=== PATIENT | male | born 1980 | race Caucasian/White ===

== ENCOUNTER 2023-04-25 15:45 | Emergency (ER) | payer OTHER, SELFPAY ==
[2023-04-25 15:49] VITALS: BP 144/85; PULSE 105; RESP 16; TEMP 36.6; O2SAT 96; BMI 27.2
--- NOTE | 2023-04-25 16:56 | ED_ITS ---
HPI - Psych General Chief Complaint: Psychiatric Symptoms Stated Complaint: crisis Time Seen by Provider: 04/25/23 16:03 Source: patient Mode of arrival: ambulatory Limitations: no limitations History of Present Illness HPI Narrative: Patient comes emergency room complaining of feeling very angry. Patient states that he is not suicidal or homicidal. Patient states that he was recently started on ADHD medications and Wellbutrin. Patient thinks that he has ADHD is well controlled but since his Wellbutrin dose was increased, he has noticed that he is always angry and having anger outburst. Related Data Allergies Allergy/AdvReac Type Severity Reaction Status Date / Time No Known Allergies Allergy Verified 04/25/23 15:54 Review of Systems Review of Systems: Constitutional : No Weight loss, No Fever, No Chills, No Night Sweats, No Fatigue, No Malaise ENT/Mouth : No Hearing loss, No Ear Pain, No Nasal Congestion, No Sinus Pain, No Hoarseness, No sore throat, No Rhinorrhea, No Swallowing Difficulty Eyes: No Eye Pain, No Swelling, No Redness, No Foreign Body, No Discharge, No Vision Changes Cardiovascular : No Chest Pain, No SOB, No Dyspnea on Exertion, No Orthopnea, No Edema, No Palpitations Respiratory : No Cough, No Sputum, No Wheezing, No Smoke Exposure, No Dyspnea Gastrointestinal : No Nausea, No Vomiting, No Diarrhea, No Constipation, No abdominal Pain, No Hematochezia, No Melena Genitourinary : no irregular bleeding, No Dysuria, No Urinary Frequency, No Hematuria, No Urinary Incontinence, No Urgency, No Flank Pain, No Urinary Flow Changes, No Hesitancy Musculoskeletal : No joint pain, No Myalgias, No Joint Swelling Skin : No Skin Lesions, No rash Neuro : No Weakness, No Numbness, No Paresthesias, No Loss of Consciousness, No Dizziness, No Headache Psych : No Anxiety/Panic, No Depression, No SI/HI/AH/VH, complaining of anger outburst Heme/Lymph: No Bruising, No Bleeding,No Lymphadenopathy Endocrine : No Polyuria, No Polydipsia, No Temperature Intolerance [facility] Past Medical History Medical History (Updated 04/25/23 @ 17:01 by Nathalia Cavazos MD) ADHD Physical Exam Vital Signs: Vital Signs: Last Vital Signs Temp 98 F 04/25/23 15:49 Pulse 105 H 04/25/23 15:49 Resp 16 04/25/23 15:49 BP 144/85 H 04/25/23 15:49 Pulse Ox 96 04/25/23 15:49 O2 Del Method Room Air 04/25/23 15:49 BMI result Body Mass Index 27.2 Const: Other: Appearance: Alert. Oriented X3. No acute distress. Eyes: Pupils equal, round and reactive to light. ENT: Pharynx normal. Neck: Normal inspection. Neck supple. No lymph nodes noted. No crepitus CVS: Normal heart rate and rhythm. Pulses normal. Normal S1 and S2 Respiratory: No respiratory distress. Breath sounds normal. No Wheezing. No rales Abdomen: Soft and nontender. No rigidity. No distention. Skin: Skin warm and dry. Normal skin color. Normal skin turgor. Extremities: No lower extremity edema. No Lacerations. No Rash Neuro: Oriented X 3. No motor deficit. No sensory deficit. Moving all extremities. No slurred speech. CN 2 through 12 grossly intact Psych: calm, cooperative, normal affect Course Course Course Narrative: -all of patient's labs are pending -care team consult pending -patient is not suicidal or homicidal, Section 12 not indicated -Physician observation status at 17:00 Discharge Plan Discharge Clinical Impression: Feeling angry Patient Disposition: Still a Patient Interventions: [place]-Suicide Risk Severity Scale Last Done: 04/25/23 16:00
[2023-04-25 17:09] LABS: Appearance Urine Clear; Color Urine Yellow; Glucose Urine UA Negative (Negative); Leukocyte Esterase Urine Negative (Negative); Nitrite Urine Negative (Negative); PH 5.5 (5.0-9.0); Urine Blood Negative (Negative); Urine Ketones Trace mg/dL (Negative); Urine Protein Negative (Neg-Trace)
--- OUTSIDE RECORDS SUMMARY | 2023-04-25 17:14 | XMS_ITS | Continuity of Care Document ---
Author Name Unknown Organization [facility] Address [address] [place] [address]- Care Team Providers Care Cook Short Order Name Role Phone Not on Staff, PCP Primary Care Physician Unavail able [place] [facility] [place]10[place]22 - 11/10/22 [facility] [address] [place] [address]- Encounter Diagnosis Dog bite(Final) - 11/10/22 Discharge Disposition: A-D/C Home Attending Physician: Janett Echevarria MD Admitting Physician: Janett Echevarria MD Referring Physician: Not on Staff, Referring MD Allergies, Adverse Reactions, Alerts No Known Allergies Immunizations Given and Recorded Vaccine Date Status Refusal Reason Rabies Immune Globulin, Human 11/10/22 Given rabies vaccine, human diploid cell 11/10/22 Given tetanus/diphtheria/pertussis, acel(Tdap) 11/10/22 Given tetanus-diphtheria toxoids (Td) 03/06/95 Recorded Measles/Mumps/Rubella Virus Vaccine 03/01/92 Recor ded Measles/Mumps/Rubella Virus Vaccine 11/20/80 Recor ded Polio Vaccine, Live (oldterm) 11/24/84 Recorded Polio Vaccine, Live (oldterm) 05/23/81 Recorded Polio Vaccine, Live (oldterm) 02/26/80 Recorded Polio Vaccine, Live (oldterm) 79 Recorded Diphth/Pertussis, Whl Cell/Tet(oldterm) 11/24/84 R ecorded Diphth/Pertussis, Whl Cell/Tet(oldterm) 05/23/81 R ecorded Diphth/Pertussis, Whl Cell/Tet(oldterm) 05/04/80 R ecorded Diphth/Pertussis, Whl Cell/Tet(oldterm) 02/26/80 R ecorded Diphth/Pertussis, Whl Cell/Tet(oldterm) 79 R ecorded Medications Augmentin 875 mg-125 mg oral tablet 1 tablet, By Mouth, Every 12 hours, for 7 days, with food or milk, # 14 tablet, 0 Refills, Acute 11/17/22 11:34:00 EDT, 11/10/22 11:34:00 EDT, Tablet, [id number], Partial fill upon patient request if the prescription is for a schedule II opioi... 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 No prior studies are available. HISTORY: Pain. FINDINGS: Today's study is limited by a ring on the fourth finger which could not be removed. No fracture or dislocation is identified. Joint spaces are well preserved. No soft tissue gas is appreciated. IMPRESSION: Slightly Limited study showing no evidence of fracture or dislocation. Examination 55417. Thank you for allowing me to participate in the care of this patient. WSN: [id number] Ordering Physician: Janett Echevarria Dictated By: Davey Pollack MD Dictated Date/Time: 11/10/22 11:17 a Reviewed By: Davey Pollack MD Signed By: Davey Pollack MD Signed Date/Time: 11/10/22 11:17 am Transcribed By: ALEXANDRO Transcribed Date/Time: 11/10/22 11:17 am Vital Signs Most recent to oldest [Reference Range]: 1 2 Height 178 cm (11/10/22 9:40 AM) 178 cm (11/10/22 9:38 AM) Weight 75 kg (11/10/22 9:40 AM) 75 kg (11/10/22 9:38 AM) Oxygen Saturation [94-100 %] 95 % (11/10/22 9:38 AM) Pulse Rate [55-90 bpm] 70 bpm (11/10/22 9:38 AM) Body Mass Index [18.5-24.99 kg/m2] 23.67 kg/m2 (11/10/22 9:38 AM) Blood Pressure [90-138/55-84 mm Hg] 146/ 90mm Hg *H* (11/10/22 9:38 AM) Respiratory Rate [16-30 br/min] 16 br/mi n (11/10/22 9:38 AM) Temperature [96.8-100.4 DegF] 98.7 DegF (11/10/22 9:38 AM) Mode of Delivery (Oxygen) Room air (11/10/22 9:38 AM) Blood pressure sites Arm, left (11/10/22 9:38 AM) Temperature Route Oral (11/10/22 9:38 AM) Dry Weight 75 kg (11/10/22 9:40 AM) Weight Obtained Via Patient/family state d (11/10/22 9:40 AM) Dry Weight Obtained Via Patient/family s tated (11/10/22 9:40 AM) Social History Social History Type Response Smoking Status Current every day sm oker; Other: 1 PPD; entered on: 11/30/13 Sex XR Hand - right GE 3 Views * [facility] , CIS S: TRANSCRIRUT Pollack MD, Davey Pate: VERIFY Event Display: Result: Authored Date: [id number] Right hand 3 views dated November 10, 2022. No prior studies are available. HISTORY: Pain. FINDINGS: Today's study is limited by a ring on the fourth finger which could not be removed. No fracture or dislocation is identified. Joint spaces are well preserved. No soft tissue gas is appreciated. IMPRESSION: Slightly Limited study showing no evidence of fracture or dislocation. Examination [id number]. Thank you for allowing me to participate in the care of this patient. WSN: [id number] Ordering Physician: Janett Echevarria Dictated By: Davey Pollack MD Dictated Date/Time: 11/10/22 11:17 a Reviewed By: Davey Pollack MD Signed By: Davey Pollack MD Signed Date/Time: 11/10/22 11:17 am Transcribed By: ALEXANDRO Transcribed Date/Time: 11/10/22 11:17 am Patient Care team information Care Team Personnel Name: Not on Staff, PCP Position: [facility] Physician (General Medicine) Member Role: PCP Name: Daysi Canela Position: [facility] Associate Professional Member Role: ED Physician Thread Winder Address: Address: [address] [place] [address]- Name: Marisa Quinones RN Position: [facility] ED RN W/OE and Tasks Member Role: Patient Care Provider Name: Kianna Jade RN Position: [facility] ED RN W/OE and Tasks Member Role: Patient Care Provider Care Team Related Persons Name: URIEL RODRIGUEZ Address: home [address] [place] [address] Name: CARLYLE RODRIGUEZ Address: [address] [place] [address]
--- OUTSIDE RECORDS SUMMARY | 2023-04-25 17:14 | XMS_ITS | Continuity of Care Document ---
Author Name Unknown Organization [facility] Address [address] [place] [address]- Care Team Providers Care Roving Department Supervisor Name Role Phone Allan Horta DO Primary Care Physician [place] [facility] [place] 03/22/[address] [address]- Discharge Disposition: A-D/C Home Attending Physician: Lizabeth Montemayor MD Admitting Physician: Lizabeth Montemayor MD Referring Physician: Not on Staff, Referring MD Allergies, Adverse Reactions, Alerts No Known Allergies Immunizations Given and Recorded Vaccine Date Status Refusal Reason tetanus-diphtheria toxoids (Td) 03/06/95 Recorded Measles/Mumps/Rubella Virus [...] tablet, By Mouth, Every 12 hours, for 10 days, # 20 tablet, 0 Refills, Acute 03/31/22 12:59:00 EDT, 03/21/22 12:59:00 EDT, Tablet, [id number], Partial fill upon patient request if the prescription is for a schedule II opioid drug., 177, cm,... Start Date: 03/21/22 Stop Date: 03/31/22 Status: Ordered Percocet-5 Tablet 2 tablet, Tablet, By Mouth, Once, STAT, 03/22/22 0:57:00 EDT, Stop date 03/22/22 0:57:00 EDT Start Date: 03/22/22 Stop Date: 03/22/22 Status: Completed Percocet-5/325 325 mg-5 mg oral tablet 1 tablet, By Mouth, Every 6 hours, PRN Pain, # 12 tablet, 0 Refills, Maintenance, 11/08/15 10:53:57, Tablet Start Date: 11/08/15 Status: Ordered Problem List Condition Effective Dates Status Health Status Inform ant Anxiety(Confirmed) 11/23/08 Active HTN - Hypertension(Confirmed) Active Social history(Confirmed) 1 Active 1smokes 1 PPD,ETOH-6 pack every couple of days,DU-smokes marijuana,works at a liquor store,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 Vital Signs Most recent to oldest [Reference Range]: 1 2 Height 177 cm (03/22/22 1:02 AM) 177 cm (03/22/22 12:49 AM) Weight 85.4 kg (03/22/22 1:02 AM) 85.4 kg (03/22/22 12:49 AM) Oxygen Saturation [94-100 %] 98 % (03/22/22 1:02 AM) Pulse Rate [55-90 bpm] 61 bpm (03/22/22 1:02 AM) Body Mass Index [18.5-24.99] 27.26 *H* (03/22/22 1:02 AM) Blood Pressure [90-138/55-84 mm Hg] 158/ 89mm Hg *H* (03/22/22 1:02 AM) Respiratory Rate [16-30 br/min] 18 br/mi n (03/22/22 1:10 AM) 18 br/min (03/22/22 1:02 AM) Temperature [96.8-100.4 DegF] 98.0 DegF (03/22/22 1:02 AM) Mode of Delivery (Oxygen) Room air (03/22/22 1:02 AM) Blood pressure sites Arm, right (03/22/22 1:02 AM) Temperature Route Temporal (03/22/22 1:02 AM) Dry Weight 85.4 kg (03/22/22 1:02 AM) 85.4 kg (03/22/22 12:49 AM) Weight Obtained Via Patient/family state d (03/22/22 12:49 AM) Social History Social History Type Response Smoking Status Current every day nayana dixon; Other: 1 PPD; entered on: 11/30/13 Sex
--- OUTSIDE RECORDS SUMMARY | 2023-04-25 17:14 | XMS_ITS | Continuity of Care Document ---
Author Name Unknown Organization [facility] Address [address] [place] [address]- Care Team Providers Care Flexo Press Operator Name Role Phone Not on Staff, PCP Primary Care Physician Unavail able [place] [facility] [place]13/22 - 11/13/22 [facility] [address] [place] [address]- Discharge Disposition: A-D/C Home Attending Physician: River Boss MD Admitting Physician: River Boss MD Referring Physician: Not on Staff, Referring MD Allergies, Adverse Reactions, Alerts No Known Allergies Immunizations Given and Recorded Vaccine Date Status Refusal Reason rabies vaccine, human diploid cell 1 11/13/22 Give n rabies vaccine, human diploid cell 11/10/22 Given Rabies Immune Globulin, Human 11/10/22 Given tetanus/diphtheria/pertussis, acel(Tdap) 11/10/22 Given tetanus-diphtheria [...] ecorded Diphth/Pertussis, Whl Cell/Tet(oldterm) 79 R ecorded 1Result Comment: MANUFACTURED BY: [employer] A/S Medications Augmentin 875 mg-125 mg oral tablet [...] [Reference Range]: 1 2 Height 178 cm (11/13/22 9:39 AM) 178 cm (11/13/22 9:34 AM) Weight 75 kg (11/13/22 9:39 AM) 75 kg (11/13/22 9:34 AM) Oxygen Saturation [94-100 %] 96 % (11/13/22 9:34 AM) Pulse Rate [55-90 bpm] 75 bpm (11/13/22 9:34 AM) Body Mass Index [18.5-24.99 kg/m2] 23.67 kg/m2 (11/13/22 9:34 AM) Blood Pressure [90-138/55-84 mm Hg] 132/ 86mm Hg (11/13/22 9:34 AM) Respiratory Rate [16-30 br/min] 18 br/mi n (11/13/22 9:34 AM) Temperature [96.8-100.4 DegF] 97.7 DegF (11/13/22 9:34 AM) Mode of Delivery (Oxygen) Room air (11/13/22 9:34 AM) Blood pressure sites Arm, left (11/13/22 9:34 AM) Temperature Route Temporal (11/13/22 9:34 AM) Dry Weight 75 kg (11/13/22 9:39 AM) Social History Social History Type Response Smoking Status Current every day sm oker; Other: 1 PPD; entered on: 11/30/13 Sex Patient Care team information Care Team Personnel Name: Not on Staff, PCP Position: S Physician (General Medicine) Member Role: PCP Care Team Related Persons Name: URIEL RODRIGUEZ Address: [address] [place] [address] Name: CARLYLE RODRIGUEZ Address: [address] [place] [address]
--- OUTSIDE RECORDS SUMMARY | 2023-04-25 17:14 | XMS_ITS | Continuity of Care Document ---
Author Name Unknown Organization [facility] Address [address] [place] [address]- Care Team Providers Care Head Of Mobile Name Role Phone Not on Staff, PCP Primary Care Physician Unavail able [place] [facility] [place]17[place]22 - 11/18/22 [facility] [address] [place] [address]- Discharge Disposition: A-D/C Home Attending Physician: Lukas Babin MD Admitting Physician: Lukas Babin MD Referring Physician: Not on Staff, Referring MD Allergies, Adverse Reactions, Alerts No Known Allergies Immunizations Given and Recorded Vaccine Date Status Refusal Reason rabies vaccine, human diploid cell 11/17/22 Given rabies vaccine, human diploid cell 1 11/13/22 [...] 79 R ecorded 1Result Comment: MANUFACTURED BY: [employer] A/S Medications Percocet-5/325 325 mg-5 mg oral tablet 1 [...] Most recent to oldest [Reference Range]: 1 Height 178 cm (11/17/22 9:30 AM) Weight 75 kg (11/17/22 9:30 AM) Oxygen Saturation [94-100 %] 97 % (11/17/22 9:30 AM) Pulse Rate [55-90 bpm] 68 bpm (11/17/22 9:30 AM) Blood Pressure [90-138/55-84 mm Hg] 115/ 72mm Hg (11/17/22 9:30 AM) Respiratory Rate [16-30 br/min] 18 br/mi n (11/17/22 9:30 AM) Temperature [96.8-100.4 DegF] 96.6 DegF *L* (11/17/22 9:30 AM) Mode of Delivery (Oxygen) Room air (11/17/22 9:30 AM) Blood pressure sites Arm, left (11/17/22 9:30 AM) Temperature Route Oral (11/17/22 9:30 AM) Dry Weight 75 kg (11/17/22 9:30 AM) Social History Social History Type Response Smoking Status Current every day sm oker; Other: 1 PPD; entered on: 11/30/13 Sex Patient Care team information Care Team Personnel Name: Not on Staff, PCP Position: [facility] Physician (General Medicine) Member Role: PCP Name: Miguelito Grover RN Position: [facility] ED RN W/OE and Tasks Member Role: Patient Care Provider Care Team Related Persons Name: URIEL RODRIGUEZ Address: [address] [address] Name: CARLYLE RODRIGUEZ Address: home [address] [place] [address] [place] [address]
--- OUTSIDE RECORDS SUMMARY | 2023-04-25 17:14 | XMS_ITS | Continuity of Care Document ---
Author Name Unknown Organization [facility] Address [address] [place] [address]- Care Team Providers Care Mutuel Department Manager Name Role Phone Not on Staff, PCP Primary Care Physician Unavail able [place] [facility] [place] 11/24/22 - 11/24/[address] [address]- Discharge Disposition: A-D/C Home Attending Physician: Jairo Del Toro MD Admitting Physician: Jairo Del Toro MD Referring Physician: Not on Staff, Referring MD Allergies, Adverse Reactions, Alerts No Known Allergies Immunizations Given and Recorded Vaccine Date Status Refusal Reason rabies vaccine, human diploid cell 11/24/22 Given rabies vaccine, human diploid cell 11/17/22 Given [...] 79 R ecorded 1Result Comment: MANUFACTURED BY: [employer] A/S Medications Percocet-5/325 325 mg-5 mg oral [...] oldest [Reference Range]: 1 Height 178 cm (11/24/22 9:25 AM) Weight 75 kg (11/24/22 9:25 AM) Oxygen Saturation [94-100 %] 98 % (11/24/22 9:25 AM) Pulse Rate [55-90 bpm] 60 bpm (11/24/22 9:25 AM) Blood Pressure [90-138/55-84 mm Hg] 135/ 89mm Hg (11/24/22 9:25 AM) Respiratory Rate [16-30 br/min] 16 br/mi n (11/24/22 9:25 AM) Temperature [96.8-100.4 DegF] 97.4 DegF (11/24/22 9:25 AM) Mode of Delivery (Oxygen) Room air (11/24/22 9:25 AM) Blood pressure sites Arm, left (11/24/22 9:25 AM) Temperature Route Temporal (11/24/22 9:25 AM) Dry Weight 75 kg (11/24/22 9:25 AM) Weight Obtained Via Patient/family state d (11/24/22 9:25 AM) Dry Weight Obtained Via Patient/family s tated (11/24/22 9:25 AM) Social History Social History Type Response Smoking Status Current every day sm oker; Other: 1 PPD; entered on: 11/30/13 Sex Patient Care team information Care Team Personnel Name: Not on Staff, PCP Position: S Physician (General Medicine) Member Role: PCP Name: Ivy Thakkar RN Position: [facility] ED RN W/OE and Tasks Member Role: Patient Care Provider Care Team Related Persons Name: URIEL RODRIGUEZ Address: [address] [address] Name: CARLYLE RODRIGUEZ Address: [place] [address]
--- NOTE | 2023-04-25 17:23 | HE.PHANOTE ---
Methadone [facility] Patient has take-home bottles. dose verified by take home bottles. Methadone 125 mg was last dispensed 04/24, and received take home bottles to last until 04/30. Maribel Pérez, PharmD
[2023-04-25 17:24] LABS: MANUAL DIFF FLAG NO
[2023-04-25 17:25] LABS: Amphetamine Screen Urine POSITIVE (Not Detect); Barbiturates, Urine Not Detected (Not Detect); Benzodiazepines Screen Urine Not Detected (Not Detect); Cannabinoid Screen Urine Not Detected (Not Detect); Cocaine Screen Urine Not Detected (Not Detect); Fentanyl, urine Not Detected (Not Detect); Opiate Screen Urine Not Detected (Not Detect); Phencyclidine Screen Urine Not Detected (Not Detect)
[2023-04-25 17:26] LABS: Basophils Absolute Auto 0.1 X10*3/uL (0.0-0.2); Basophils Percent Auto 1.1 % (0-2); Eosinophils Absolute Auto 0.2 X10*3/uL (0.0-0.4); Eosinophils Percent Auto 3.2 % (0-4); Hematocrit 36.2 % (42.0-52.0); Hemoglobin 12.9 g/dl (14.0-18.0); Imm Gran Abs Auto 0.02 X10*3/uL (0.00-0.03); Imm Gran Pct Auto 0.3 % (0.0-0.4); Lymphocytes Absolute Auto 1.6 X10*3/uL (1.2-4.9); Lymphocytes Percent Auto 26.1 % (20-40); Mean Corpuscular HGB Conc 35.6 g/dl (31.0-36.0); Mean Corpuscular Hemoglobin 29.5 pg (27.0-33.0); Mean Corpuscular Volume 82.6 fL (80.0-98.0); Mean Platelet Volume 8.5 fL (9.4-12.4); Monocytes Absolute Auto 0.3 X10*3/uL (0.1-1.2); Monocytes Percent Auto 5.1 % (2-11); Neutrophils Percent Auto 64.2 % (45-73); Platelet Count 205 X10*3/uL (160-400); Red Blood Count 4.38 X10*6/uL (4.60-5.80); Red Cell Distribution Width 13.2 % (11.0-16.0); White Blood Count 6.2 X10*3/uL (4.8-10.8)
[2023-04-25 17:42] LABS: Alanine Aminotransferase 23 U/L (0-40); Albumin Level 4.5 g/dL (3.5-5.0); Alkaline Phosphatase 55 U/L (39-117); Anion Gap 17 (12-20); Aspartate Amino Transferase 19 U/L (5-37); Bilirubin Total 0.4 mg/dL (0.0-1.0); Blood Urea Nitrogen 20 mg/dL (9-16); Calcium 9.9 mg/dL (8.4-10.2); Carbon Dioxide 22 mmol/L (22-29); Chloride 103 mmol/L (96-108); Estimated Glomerular Filt Rate > 60; Glucose Random 134 mg/dL (60-115); Potassium 3.6 mmol/L (3.3-5.1); Sodium 138 mmol/L (135-145)
[2023-04-25 17:48] LABS: Ethanol < 10 mg/dL
[2023-04-26 00:33] VITALS: BP 108/64; PULSE 90; RESP 16; TEMP 36.6; O2SAT 99
--- NOTE | 2023-04-26 06:48 | PC.NURSE ---
Patient slept though the night, no distress observed/reported, behavior non concerning, disposition per care team is recovery team referral, VSS, med rec completed/pending provider's approval, labs completed/resulted, will continue to monitor.
[2023-04-26] MEDS: Gabapentin 400 MG CAPSULE PO (08:11)
[2023-04-26] MEDS: methADONE HCl 20 MG/2 ML ORAL.CONC 125 MG PO (08:12)
[2023-04-26 08:16] VITALS: BP 129/69; PULSE 90; RESP 19; TEMP 36.2; O2SAT 99
[2023-04-26] MEDS: Dextroamphetamine/Amphetamine XR 5 MG CAP.ER.24H 25 MG PO (08:29)
--- NOTE | 2023-04-26 10:16 | PC.NURSE ---
Seen by Kristy Jiménez, will inquire about resources that will be helpful for pt
--- NOTE | 2023-04-26 10:17 | PC.NURSE ---
Pt calm/cooperative,polite. Reports frustration with current residential program and med regime. Denies SI or HI. Meds admin this AM without incident. VSS
== END 2023-04-26 12:55 | disposition home or self-care (01) ==
PROVIDERS: Emergency Provider Emergency Medicine
DX: R45.4 Irritability and anger (principal); F90.9 Attention-deficit hyperactivity disorder, unspecified type; Z79.899 Other long term (current) drug therapy
CPT/HCPCS: 36415; 80053; 80307; 81003; 85025; 99285; S9485